=== PATIENT | female | born 1985 | race African-American/Black ===

== ENCOUNTER 2017-07-21 18:04 | Emergency (ER) | payer OTHER ==
[2017-07-21 18:23] VITALS: BP 130/64; PULSE 79; TEMP 98.3; BMI 37.1
--- NOTE | 2017-07-21 20:23 | PDOC ---
History of Present Illness - General Exam Limitations: No Limitations - History of Present Illness Initial Comments: 07/21/17 21:39 The patient is a 32 year old female, with no significant past medical history, who presents to the emergency department with heavy vaginal bleeding. Patient states that her LMP occurred around the first week in June. Yesterday at work , she had cramps and period came like it normally does. This evening she took a shower and she noticed heavy amounts of clots of blood coming from her vaginal area. So she called an ambulance because she was concerned about the amount of blood. She denies . She denies past surgeries. She denies recent fevers, chills, headache or dizziness. She denies recent nausea, vomit, diarrhea or constipation. She denies recent dysuria, frequency, urgency or hematuria. She denies recent chest pain or shortness of breath. Allergies: NKA Past surgical history: None reported. Social history: Nonsmoker. Denies EtOH use and recreational drug use. Primary Care Physician: Mily Cruz <Farrah Corado - Last Filed: 07/21/17 21:37> <Naomy Quesada - Last Filed: 07/22/17 00:04> - General Chief Complaint: Vaginal Bleeding Stated Complaint: VAGINAL BLEED Time Seen by Provider: 07/21/17 19:23 Past History <Farrah Corado - Last Filed: 07/21/17 21:37> - Past Medical History Other medical history: denies - Reproductive History Is Patient Now?: No Cervical CA: No Dysfunctional Uterine Bleeding: No Ectopic : No Endometrial CA: No Polycystic Ovaries: No Therapeutic (s) & number: No Tubal Ligation: No - Suicide/Smoking/Psychosocial Hx Smoking History: Never smoked Information on smoking cessation initiated: No Hx Alcohol Use: No Drug/Substance Use Hx: No Substance Use Type: None <Naomy Quesada - Last Filed: 07/22/17 00:04> - Past Medical History Allergies/Adverse Reactions: Allergies Allergy/AdvReac Type Severity Reaction Status Date / Time No Known Drug Allergies Allergy Verified 07/21/17 18:23 FRUITS AND VEGETABLES Allergy Uncoded 07/21/17 18:23 Home Medications: Ambulatory Orders Omeprazole Magnesium [Prilosec (OTC)] 40 mg PO DAILY 01/02/15 Ondansetron [Zofran *Odt*] 8 mg SL TID #30 od.tablet 01/02/15 Phentermine HCl 37.5 mg PO DAILY 01/02/15 Valacyclovir HCl [Valtrex -] 500 mg PO DAILY 01/02/15 Review of Systems - Review of Systems Comments:: 07/21/17 21:39 CONSTITUTIONAL: Absent: fever, no chills, no fatigue EYES: Absent: visual changes ENT: Absent: ear pain, no sore throat CARDIOVASCULAR: Absent: chest pain, no palpitations RESPIRATORY: Absent: cough, no SOB GI: Absent: abdominal pain, no nausea, no vomiting, no constipation, no diarrhea GENITOURINARY: POINT OF CARE TECHNICIAN: +blood clots MUSCULOSKELETAL: Absent: back pain, no arthralgia, no myalgia SKIN: Absent: rash NEURO: Absent: headache <Farrah Corado - Last Filed: 07/21/17 21:37> *Physical Exam - Vital Signs Last Vital Signs Temp Pulse Resp BP Pulse Ox 98.3 F 79 19 130/64 100 07/21/17 18:18 07/21/17 18:18 07/21/17 18:18 07/21/17 18:18 07/21/17 18:18 - Physical Exam Comments: 07/21/17 21:37 GENERAL: Well-appearing, well-nourished. No apparent distress. HEENT: Normocephalic, atraumatic. PERRL, EOM intact. CARDIOVASCULAR: Normal S1, S2. Regular rate and rhythm. PULMONARY: Clear to auscultation bilaterally. ABDOMEN: Soft, non-distended, non-tender. EXTREMITIES: Normal ROM in all four extremities. No gross deformities. SKIN: Warm, dry. No rash NEUROLOGICAL: No focal neurological deficits. Pelvic Exam: Blood in the vaginal vault, no clots, os closed. No adnexal tenderness. <Farrah Corado - Last Filed: 07/21/17 21:37> - Vital Signs Last Vital Signs Temp Pulse Resp BP Pulse Ox 98.3 F 79 19 130/64 100 07/21/17 18:18 07/21/17 18:18 07/21/17 18:18 07/21/17 18:18 07/21/17 18:18 <Naomy Quesada - Last Filed: 07/22/17 00:04> ED Treatment Course - LABORATORY CBC & Chemistry Diagram: 07/21/17 21:15 07/21/17 21:15 - ADDITIONAL ORDERS Additional order review: Laboratory Results 07/21/17 07/21/17 21:15 21:15 Urine Color Yellow Urine Appearance Slcloudy Urine pH 5.0 Urine Protein 1+ H Urine Glucose (UA) Negative Urine Ketones Negative Urine Blood 3+ H Urine Nitrite Negative Urine Bilirubin Negative Urine Urobilinogen Negative Urine RBC 2714 Urine WBC 12 Ur Epithelial Cells Rare Urine Mucus Rare Urine HCG, Qual Positive <Farrah Corado - Last Filed: 07/21/17 21:37> - LABORATORY CBC & Chemistry Diagram: 07/21/17 21:15 07/21/17 21:15 <Naomy Quesada - Last Filed: 07/22/17 00:04> Medical Decision Making - Medical Decision Making 07/22/17 00:03 32-year-old female presents because she's had pelvic cramping and vaginal bleeding. She states that she did actually have a period earlier this month, but her test was positive. The beta hCG is 1600 , but the pelvic ultrasound did not show an IUP. There was evidence of a thickened endometrium Impression early versus ectopic versus threatened AB Patient told to come back to the emergency department in 48 hours to have repeat Beta-hCG and ultrasound <Naomy Quesada - Last Filed: 07/22/17 00:04> *DC/Admit/Observation/Transfer - Attestations Scribe Attestion: 07/21/17 21:40 Documentation prepared by Farrah Corado, acting as medical record administrator for Naomy Quesada MD. <Farrah Corado - Last Filed: 07/21/17 21:37> <Naomy Quesada - Last Filed: 07/22/17 00:04> Diagnosis at time of Disposition: Threatened - Discharge Dispostion Disposition: HOME Condition at time of disposition: Stable - Referrals Referrals: Mily Cruz MD [Primary Care Provider] - - Patient Instructions Printed Discharge Instructions: DI for Vaginal Bleeding During , DI for Threatened Additional Instructions: You MUST HAVE A REPEAT BLOOD TEST (BHCG) IN 48 HOURS and another pelvic ultasound
[2017-07-21 21:23] LABS: BASOPHIL 0.8 % (0-2.0); EOSINOPHIL 1.5 % (0-4.5); MCHC 32.1 g/dl (32.0-36.0); MEAN CELL VOLUME 68.4 fl (80-96); MEAN PLT VOLUME 6.8 fl (7.5-11.1); NEUTROPHILS 54.1 % (42.8-82.8); PLATELET COUNT 297 K/MM3 (134-434); RDW 14.7 % (11.6-15.6); WHITE BLOOD COUNT 8.2 K/mm3 (4.0-10.0)
[2017-07-21 21:25] LABS: URINE APPEARANCE SLCLOUDY; URINE BILIRUBIN NEGATIVE (NEGATIVE); URINE BLOOD 3+ (NEGATIVE); URINE COLOR YELLOW; URINE GLUCOSE (UA) NEGATIVE (NEGATIVE); URINE KETONE NEGATIVE (NEGATIVE); URINE NITRITE NEGATIVE (NEGATIVE); URINE UROBILINOGEN NEGATIVE mg/dL (0.2-1.0)
[2017-07-21 21:29] LABS: URINE MUCUS RARE; URINE PROTEIN 1+ (NEGATIVE); URINE RBC 2714 /hpf (0-3); URINE WBC 12 /hpf (3-5)
[2017-07-21 21:57] LABS: ALBUMIN 3.4 g/dl (3.4-5.0); ALK PHOS 55 U/L (45-117); ANION GAP 8 (8-16); BILIRUBIN,TOTAL 0.4 mg/dL (0.2-1.0); CALCIUM 8.9 mg/dL (8.5-10.1); CO2 24 mmol/L (21-32); CREATININE 0.7 mg/dL (0.55-1.02); GLUCOSE,RANDOM 109 mg/dL (74-106); SGOT/AST 20 U/L (15-37); SGPT/ALT 23 U/L (12-78); TOT PROT 6.9 g/dl (6.4-8.2)
[2017-07-21 22:21] LABS: URINE LEUK ESTERASE Negative (NEGATIVE)
== END 2017-07-22 00:13 | disposition home or self-care (01) ==
LOC: JER 18:04
DX: O20.0 Threatened abortion (principal); Z3A.00 Weeks of gestation of pregnancy not specified
CPT/HCPCS: 36415; 76817-TC; 80053; 81003; 81015; 84702; 84703; 85025; 99281-25

== ENCOUNTER 2017-07-23 11:04 | Emergency (ER) | payer OTHER ==
[2017-07-23 11:22] VITALS: BP 126/69; PULSE 71; TEMP 98; BMI 37.8
--- NOTE | 2017-07-23 12:09 | PDOC ---
History of Present Illness - General Chief Complaint: Revisit, Lab Variance Stated Complaint: REPEAT (BHCG) TESTING Time Seen by Provider: 07/23/17 12:05 History Source: Patient Exam Limitations: No Limitations - History of Present Illness Initial Comments: 07/23/17 12:08 The patient is a 32 year old female, with no significant past medical history, who presents to the emergency department for repeat beta HCG. She was seen in the emergency department on 07/21 with heavy vaginal bleeding. Beta HCG was 1600 , transvaginal US with no inrauterine , recommend followup beta. Patient reports missing her period in May. She denies recent fevers, chills, headache or dizziness. She denies recent nausea, vomit, diarrhea or constipation. She denies recent dysuria, frequency, urgency or hematuria. She denies recent chest pain or shortness of breath. Allergies: NKA Past surgical history: None reported. Social history: Nonsmoker. Denies EtOH use and recreational drug use. 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 07/23/17 13:21 Past History - Past Medical History Allergies/Adverse Reactions: Allergies Allergy/AdvReac Type Severity Reaction Status Date / Time No Known Drug Allergies Allergy Verified 07/23/17 11:19 FRUITS AND VEGETABLES Allergy Uncoded 07/23/17 11:19 Home Medications: Ambulatory Orders Omeprazole Magnesium [Prilosec (OTC)] 40 mg PO DAILY 01/02/15 Ondansetron [Zofran *Odt*] 8 mg SL TID #30 od.tablet 01/02/15 Phentermine HCl 37.5 mg PO DAILY 01/02/15 Valacyclovir HCl [Valtrex -] 500 mg PO DAILY 01/02/15 Diabetes: Yes - Reproductive History Cervical CA: No Dysfunctional Uterine Bleeding: No Ectopic : No Endometrial CA: No Polycystic Ovaries: No Therapeutic (s) & number: No Tubal Ligation: No - Immunization History Immunization Up to Date: Yes - Suicide/Smoking/Psychosocial Hx Smoking History: Never smoked Hx Alcohol Use: No Drug/Substance Use Hx: No Substance Use Type: None Review of Systems - Review of Systems Constitutional: No: Symptoms Reported HEENTM: No: Symptoms Reported Respiratory: No: Symptoms reported Cardiac (ROS): No: Symptoms Reported ABD/GI: No: Symptoms Reported : Yes: Other (vaginal bleeding). No: Symptoms Reported, Dysuria, Discharge, Frequency, Flank Pain, Hematuria, Incontinence, Pain Musculoskeletal: No: Symptoms Reported Integumentary: No: Symptoms Reported Neurological: No: Symptoms reported Hematologic/Lymphatic: No: Symptoms Reported All Other Systems: Reviewed and Negative *Physical Exam - Vital Signs Last Vital Signs Temp Pulse Resp BP Pulse Ox 98.0 F 71 18 126/69 98 07/23/17 11:20 07/23/17 11:20 07/23/17 11:20 07/23/17 11:20 07/23/17 11:20 - Physical Exam General Appearance: Yes: Appropriately Dressed. No: Apparent Distress Respiratory/Chest: positive: Lungs Clear, Normal Breath Sounds Cardiovascular: positive: Regular Rhythm, Regular Rate Female Pelvic Exam: positive: normal external exam, cervical os closed, vaginal bleeding. negative: discharge, adnexal tenderness, uterus, Urethra Gastrointestinal/Abdominal: positive: Normal Bowel Sounds, Soft. negative: Tender Rectal Exam: positive: normal exam Lymphatic: negative: Adenopathy Integumentary: positive: Normal Color, Dry Neurologic: positive: Alert, Normal Mood/Affect Medical Decision Making - Medical Decision Making 07/23/17 13:22 A/P: For repeat beta hCG level today is Laboratory Results - last 24 hr 07/23/17 11:56 Beta HCG, Quant 298.0 Consistent with miscarriage, patient denies any abdominal pain leading has decreased bleeding has an appointment with Dr. Benavides. Patient will follow-up as instructed. 07/23/17 19:14 *DC/Admit/Observation/Transfer Diagnosis at time of Disposition: Miscarriage - Discharge Dispostion Disposition: HOME Condition at time of disposition: Good Admit: No - Referrals Referrals: Mily Cruz MD [Primary Care Provider] - Jenna Benavides MD [Staff Physician] - - Patient Instructions Printed Discharge Instructions: DI for Miscarriage
== END 2017-07-23 13:32 | disposition home or self-care (01) ==
LOC: JERFT 11:04
DX: O02.1 Missed abortion (principal); Z3A.01 Less than 8 weeks gestation of pregnancy
CPT/HCPCS: 36415; 84702; 99281-25